=== PATIENT | female | born 1955 ===

== ENCOUNTER 2018-09-03 14:17 | Outpatient (CLI) | payer OTHER | END 2018-09-03 14:18 | disposition home or self-care (01) | LOC: C.MAMMO 14:17 | DX: Z12.31 Encounter for screening mammogram for malignant neoplasm of breast (principal) ==

== ENCOUNTER 2018-09-11 13:49 | Outpatient (CLI) | payer OTHER | END 2018-09-11 13:50 | disposition home or self-care (01) | LOC: C.USIC 13:50 | DX: E78.00 Pure hypercholesterolemia, unspecified (principal); E11.9 Type 2 diabetes mellitus without complications; R10.2 Pelvic and perineal pain ==